=== PATIENT | male | born 1965 | race Caucasian/White ===

== ENCOUNTER 2023-10-27 07:00 | Outpatient (CLI) | payer BC ==
--- NOTE | 2023-10-27 14:23 | XRAY Report ---
PROCEDURE: Clavicle RT INDICATIONS: RIGHT CLAVICLE PAIN/LUMP TECHNIQUE: 2 views of the clavicle were acquired. COMPARISON: None. FINDINGS: Bones: No acute fractures or dislocations. Remote ORIF of the distal clavicle. There is some space b etween the plate and the peripheral aspect of the clavicle, likely a chronic finding. Question loosen ing at the distal aspect of the surgical hardware. No suspicious bony lesions. Soft tissues: No suspicious soft tissue calcifications or masses. IMPRESSION: No acute bony abnormality. Remote clavicular fracture. Question some degree of hardware loosening. Reviewed by: Raza Collado MD on 10/27/2023 2:22 PM PDT Approved by: Raza Collado MD on 10/27/2023 2:22 PM PDT Station ID: [id number]
== END 2023-10-27 23:59 | disposition home or self-care (01) ==
LOC: DI.S 07:00
PROVIDERS: ATTEND Physician Assistant Medical
DX: M89.8X8 Other specified disorders of bone, other site (principal); Z98.890 Other specified postprocedural states